=== PATIENT | male | born 1985 | race Caucasian/White ===

== ENCOUNTER 2022-05-07 04:24 | Emergency (ER) | payer MEDICAID ==
[~2022-05-07] VITALS: Ht 167.6 cm; Wt 68.0 kg
[2022-05-07 04:40] VITALS: BP 122/72
--- NOTE | 2022-05-07 04:43 | NUR ---
pt to melida
[2022-05-07] MEDS ORDERED: KETOROLAC 15 MG/ML VIAL IM ONE (05:05)
[2022-05-07] MEDS ORDERED: IBUP-2213 PO (05:09)
[2022-05-07 05:27] VITALS: BP 122/72
== END 2022-05-07 05:27 | disposition home or self-care (01) ==
LOC: MED 04:24
DX: J02.9 Acute pharyngitis, unspecified (principal); Z20.822 Contact with and (suspected) exposure to COVID-19; Z79.1 Long term (current) use of non-steroidal anti-inflammatories (NSAID)
CPT/HCPCS: 87426; 87804; 96374; 99283; J1885

== ENCOUNTER 2023-02-15 16:40 | Emergency (ER) | payer MEDICAID ==
[~2023-02-15] VITALS: Ht 160 cm; Wt 71.7 kg
[~2023-02-15 16:40] MED LIST: IBUP-2213 PO
[2023-02-15 17:23] VITALS: BP 123/82; PULSE 60; RESP 18; TEMP 98.5; O2SAT 98
[2023-02-15] MEDS ORDERED: FLUORESCEIN OPTH STRIP 1 MG OP ONE (18:05)
[2023-02-15] MEDS ORDERED: TETRACAINE HCL/PF 0.5% OPTH 4 ML BTL OP ONE (18:05)
[2023-02-15] MEDS ORDERED: IBUP-2213 PO (18:47)
[2023-02-15] MEDS ORDERED: CIPR10DR4 LEFT EYE (18:47)
[2023-02-15 18:55] VITALS: BP 125/80; PULSE 72; RESP 20; TEMP 98.5; O2SAT 99
== END 2023-02-15 18:55 | disposition home or self-care (01) ==
LOC: MED 16:40
DX: S05.02XA Injury of conjunctiva and corneal abrasion without foreign body, left eye, initial encounter (principal); X58.XXXA Exposure to other specified factors, initial encounter; Y93.89 Activity, other specified; Y92.89 Other specified places as the place of occurrence of the external cause; Y99.8 Other external cause status
CPT/HCPCS: 99284

== ENCOUNTER 2023-09-11 09:38 | Emergency (ER) | payer MEDICAID, OTHER ==
[~2023-09-11] VITALS: Ht 162.6 cm; Wt 70.3 kg
[~2023-09-11 09:38] MED LIST changes: +CIPR10DR4 LEFT EYE
[2023-09-11 09:48] VITALS: PULSE 68; RESP 16; TEMP 97.7; O2SAT 100
[2023-09-11 11:13] LABS: FLU A ANTIGEN negative (NEGATIVE); FLU B ANTIGEN NEGATIVE (NEGATIVE)
[2023-09-11] MEDS ORDERED: BENZ-300 PO (11:22)
[2023-09-11 11:36] VITALS: BP 124/62; PULSE 70; RESP 14; TEMP 36.50292; O2SAT 99
== END 2023-09-11 11:36 | disposition home or self-care (01) ==
LOC: MED 09:38
DX: J02.8 Acute pharyngitis due to other specified organisms (principal); B97.89 Other viral agents as the cause of diseases classified elsewhere; Z20.822 Contact with and (suspected) exposure to COVID-19; Z79.1 Long term (current) use of non-steroidal anti-inflammatories (NSAID); Z79.2 Long term (current) use of antibiotics; Z79.899 Other long term (current) drug therapy
CPT/HCPCS: 87081; 99283